=== PATIENT | male | born 1985 | race Caucasian/White ===

== ENCOUNTER 2019-12-26 00:53 | Emergency (ER) | payer SELFPAY ==
[2019-12-26] MEDS ORDERED: Diphtheria,Pertussis(Acell),Tetanus Vaccine 0.5 ML SDV IM ONE (00:57)
[2019-12-26] MEDS ORDERED: Lidocaine 1% 30 ML SDV INJECT ONE (00:57)
--- NOTE | 2019-12-26 01:01 | EDM.PDOC ---
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 [No Known Home Meds] 12/26/19 [History] ED ROS GENERAL - Review of Systems Review Of Systems: Comprehensive ROS is negative, except as noted in HPI. ED EXAM, SKIN/RASH Exam: See Below Exam Limited By: No Limitations General Appearance: Alert, WD/WN, Mild Distress, Other ([place]) Eye Exam: Bilateral Eye: PERRL (pupils ER @ 4mm) Ears: Hearing Grossly Normal Throat/Mouth: Normal Voice, No Airway Compromise Head: Other (right brow lac, no O/B) Neck: Non-Tender, Full Range of Motion Respiratory/Chest: No Respiratory Distress Cardiovascular: Regular Rate, Rhythm GI/Abdominal: Soft, Non-Tender Neurological: Alert, Oriented, Normal Cognition, Normal Gait, No Motor/Sensory Deficits Psychiatric: Normal Affect, Normal Mood Skin: Warm, Dry, Normal Color Location, Skin: Face ED SKIN PROCEDURES - Laceration/Wound Repair Right Elbow Appearance: Subcutaneous, Linear, Clean Anesthetic Type: Local Local Anesthesia - Lidocaine (Xylocaine): 1% Plain Local Anesthetic Volume: 5cc Skin Prep: Chlorhexidine (Hibiciens) Saline Irrigation (cc's): 20 Exploration/Debridement/Repair: Wound Explored, No Foreign Material Found Closed with: Sutures Lac/Wound length In cm: 3 Suture Size: 4-0 Suture Type: Nylon, Interrupted Sterile Dressing Applied: None Tetanus Status Addressed: Yes Complications: No Course - Vital Signs Last Recorded V/S: Last Vital Signs Temp 36.1 C 12/26/19 01:00 Pulse 91 12/26/19 01:00 Resp 19 12/26/19 01:00 BP 137/83 12/26/19 01:00 Pulse Ox 99 12/26/19 01:00 - Orders/Labs/Meds Orders: Active Orders 24 hr Category Date Time Status Vaccines to be Administered [RC] PER UNIT ROUTINE Care 12/26/19 00:57 Active Meds: Medications Discontinued Medications Generic Name Dose Route Start Last Admin Trade Name Troy PRN Reason Stop Dose Admin Diphtheria/Tetanus/Acell Pertussis 0.5 ml 12/26/19 00:57 12/26/19 01:08 Adacel IM 12/26/19 00:58 0.5 ml .ONCE ONE Administration Diphtheria/Tetanus/Acell Pertussis Confirm 12/26/19 01:06 Adacel Administered 12/26/19 01:07 Dose 0.5 ml .ROUTE .STK-MED ONE Lidocaine HCl 30 ml 12/26/19 00:57 12/26/19 01:09 Xylocaine-Mpf 1% INJECT 12/26/19 00:58 30 ml ONETIME ONE Administration Lidocaine HCl Confirm 12/26/19 01:06 Xylocaine-Mpf 1% Administered 12/26/19 01:07 Dose 30 ml .ROUTE .STK-MED ONE Departure - Departure Time of Disposition: 01:24 Disposition: Home, Self-Care 01 Condition: Good Clinical Impression: Laceration of brow without complication Qualifiers: Encounter type: initial encounter Qualified Code(s): S01.81XA - Laceration without foreign body of other part of head, initial encounter - Discharge Information Instructions: Sutured Wound Care, [id number] Additional Instructions: 1) keep wound clean and dry 2) recheck if looks infected 3) suture removal 7 to 10 days Sepsis Event Note - Focused Exam Vital Signs: Vital Signs Temp Pulse Resp BP Pulse Ox 12/26/19 01:00 36.1 C 91 19 137/83 99 Date Exam was Performed: 12/26/19 Time Exam was Performed: 01:24 - My Orders Last 24 Hours: My Active Orders 12/26/19 00:57 Vaccines to be Administered [RC] PER UNIT ROUTINE - Assessment/Plan Last 24 Hours: My Active Orders 12/26/19 00:57 Vaccines to be Administered [RC] PER UNIT ROUTINE
[2019-12-26] MEDS ORDERED: Lidocaine 1% 30 ML SDV ONE (01:06)
[2019-12-26] MEDS ORDERED: Diphtheria,Pertussis(Acell),Tetanus Vaccine 0.5 ML SDV ONE (01:06)
== END 2019-12-26 01:28 | disposition home or self-care (01) ==
LOC: DL.ED 00:53
DX: S01.111A Laceration without foreign body of right eyelid and periocular area, initial encounter (principal); Z23 Encounter for immunization; X58.XXXA Exposure to other specified factors, initial encounter
CPT/HCPCS: 12002; 90471; 90715; 99282; J2001

== ENCOUNTER 2022-02-19 20:42 | Emergency (ER) | payer SELFPAY ==
[2022-02-19 21:47] LABS: ANION GAP 14.1 mEq/L (7-13)
== END 2022-02-19 23:34 | disposition home or self-care (01) ==
LOC: DL.ED 20:42
DX: K42.9 Umbilical hernia without obstruction or gangrene (principal)
CPT/HCPCS: 36415; 80053; 85025; 99282; 99283

== ENCOUNTER 2024-05-13 15:17 | Observation (INO) | payer OTHER ==
[2024-05-13] MEDS ORDERED: Sodium Chloride 0.9% 10 ML Syringe FLUSH PRN (16:08)
[2024-05-13] MEDS: Iopamidol 612 MG/ML 100 ML Bottle IVPUSH ONE (16:11)
[2024-05-13] MEDS: Sodium Chloride 0.9% 1,000 ML IV ONE ×2 (17:07→17:46)
[2024-05-13 17:11] LABS: BASOPHILS PERCENT AUTO 0.2 % (0.0-1.0); EOSINOPHILS PERCENT AUTO 2.1 % (1.0-3.0); HEMATOCRIT 43.6 % (40.0-54.0); HEMOGLOBIN 14.9 g/dL (14.0-18.0); LYMPHOCYTES PERCENT AUTO 25.2 % (20.5-50.1); MEAN CORPUSCULAR HEMOGLOBIN 30.2 pg (27.0-34.0); MEAN CORPUSCULAR HGB CONC 34.2 g/dL (33.0-35.0); MEAN CORPUSCULAR VOLUME 88.3 fL (80-100); MONOCYTES PERCENT AUTO 8.5 % (2-8); PLATELET COUNT,PLT 248 10^3/uL (150-450); RED BLOOD CELL COUNT 4.94 10^6/uL (4.6-6.2); WHITE BLOOD CELL COUNT,WBC 10.3 10^3/uL (5.0-10.0)
[2024-05-13 17:20] LABS: APPEARANCE,URINE CLEAR (CLEAR); BILIRUBIN,URINE NEGATIVE (NEGATIVE); COLOR,URINE YELLOW (YELLOW); GLUCOSE,URINE NEGATIVE (NEGATIVE); KETONES,URINE NEGATIVE (NEGATIVE); LEUKOCYTE ESTERASE,URINE NEGATIVE (NEGATIVE); NITRITE,URINE NEGATIVE (NEGATIVE); OCCULT BLOOD,URINE SMALL (NEGATIVE); PH,URINE 6.5 (5.0-9.0); PROTEIN,URINE NEGATIVE (NEGATIVE); UROBILINOGEN,URINE 0.2 mg/dL (0.2-1.0)
[2024-05-13 17:29] LABS: AMORPHOUS SEDIMENT,URINE RARE /HPF (NOT SEEN); BACTERIA,URINE FEW /HPF (0-FEW/HPF); EPITHELIAL CELLS,URINE RARE /HPF (NOT SEEN); MUCUS,URINE FEW /LPF (NOT SEEN); WBC,URINE 0-5 /HPF (0-5/HPF)
[2024-05-13 17:33] LABS: PROTHROMBIN TIME 10.3 SEC (9.0-12.0); PTT,PARTIAL THROMBOPLSTIN TIME 25.8 SEC (22.0-34.0)
[2024-05-13 17:36] LABS: ALBUMIN 3.9 g/dL (3.4-5.0); ANION GAP 13.1 mEq/L (7-13); BILIRUBIN TOTAL 0.3 mg/dL (0.2-1.0); BUN/CREATININE RATIO 11.8 (No establ ref range); CALCIUM 9.1 mg/dL (8.5-10.1); CREATININE 1.19 mg/dL (0.70-1.30); EST CRCL DRUG DOSING (CG) 108.81 mL/min; MAGNESIUM 1.8 mg/dL (1.8-2.4); POTASSIUM,K 4.1 mmol/L (3.5-5.1); PROTEIN TOTAL,TP 7.7 g/dL (6.4-8.2)
[2024-05-13 20:30] LABS: AMPHETAMINES,URINE NEGATIVE (NEGATIVE); BARBITURATES,URINE NEGATIVE (NEGATIVE); BENZODIAZEPINE,URINE NEGATIVE (NEGATIVE); MDMA (ECSTASY), URINE NEGATIVE (NEGATIVE); METHADONE,URINE NEGATIVE (NEGATIVE); METHAMPHETAMINES,URINE NEGATIVE (NEGATIVE); OPIATES,URINE NEGATIVE (NEGATIVE); OXYCODONE,URINE NEGATIVE (NEGATIVE); PHENCYCLIDINE,URINE NEGATIVE (NEGATIVE); TCA,URINE NEGATIVE (NEGATIVE)
[2024-05-13] MEDS ORDERED: Sennosides/Docusate Sodium 50-8.6 MG Tab PO PRN (21:24)
[2024-05-13] MEDS ORDERED: HYDROmorphone 0.5 MG/0.5 ML Syringe IVPUSH PRN (21:24)
[2024-05-13] MEDS ORDERED: Metoclopramide 10 MG/2 ML SDV IV PRN (21:24)
[2024-05-13] MEDS ORDERED: Magnesium Hydroxide 400 MG/5 ML Susp 30 ML Cup PO PRN (21:24)
[2024-05-13] MEDS ORDERED: Acetaminophen/oxyCODONE 325-5 MG Tab PO PRN (21:24)
[2024-05-13] MEDS ORDERED: Albuterol/Ipratropium 3.0-0.5 MG/3 ML Neb Soln NEB PRN (21:24)
[2024-05-13] MEDS ORDERED: Naloxone 2 MG/2 ML Syringe IVPUSH PRN (21:24)
[2024-05-13] MEDS ORDERED: Temazepam 15 MG Cap PO PRN (21:24)
[2024-05-13] MEDS ORDERED: Acetaminophen 325 MG Tab PO PRN (21:24)
[2024-05-13] MEDS ORDERED: Polyethylene Glycol 3350 Powder 17 GM Packet PO PRN (21:24)
[2024-05-13] MEDS ORDERED: Ondansetron 4 MG/2 ML SDV IVPUSH PRN (21:24)
[2024-05-13] MEDS: Sodium Chloride 0.9% 1,000 ML IV SCH (22:00)
[2024-05-14 06:38] LABS: BASOPHILS PERCENT AUTO 0.4 % (0.0-1.0); EOSINOPHILS PERCENT AUTO 3.7 % (1.0-3.0); HEMATOCRIT 41.9 % (40.0-54.0); HEMOGLOBIN 14.3 g/dL (14.0-18.0); LYMPHOCYTES PERCENT AUTO 28.2 % (20.5-50.1); MEAN CORPUSCULAR HGB CONC 34.1 g/dL (33.0-35.0); MONOCYTES PERCENT AUTO 9.7 % (2-8); PLATELET COUNT,PLT 215 10^3/uL (150-450); RED BLOOD CELL COUNT 4.76 10^6/uL (4.6-6.2); WHITE BLOOD CELL COUNT,WBC 7.3 10^3/uL (5.0-10.0)
[2024-05-14 06:59] LABS: ALBUMIN 3.3 g/dL (3.4-5.0); ANION GAP 10.3 mEq/L (7-13); BILIRUBIN TOTAL 0.5 mg/dL (0.2-1.0); BUN/CREATININE RATIO 11.8 (No establ ref range); CALCIUM 8.8 mg/dL (8.5-10.1); CREATININE 1.1 mg/dL (0.70-1.30); EST CRCL DRUG DOSING (CG) 117.71 mL/min; MAGNESIUM 1.8 mg/dL (1.8-2.4); POTASSIUM,K 4.3 mmol/L (3.5-5.1); PROTEIN TOTAL,TP 6.7 g/dL (6.4-8.2)
[2024-05-14 07:01] LABS: A/G RATIO 0.97
[2024-05-14] MEDS ORDERED: Enoxaparin 40 MG/0.4 ML Syringe SUBCUT SCH (09:00)
== END 2024-05-14 09:55 | disposition home or self-care (01) ==
LOC: DL.ED 15:17 → DL.MS 19:16
PROVIDERS: ADMIT Internal Medicine; ATTEND Internal Medicine
DX: M62.82 Rhabdomyolysis (principal); E78.5 Hyperlipidemia, unspecified; E66.812 Obesity, class 2; Z68.37 Body mass index [BMI] 37.0-37.9, adult
CPT/HCPCS: 36415; 70450; 71045; 71260; 72125; 73090; 73100; 73552; 74177; 80053; 80305; 80307; 81001; 82550; 83735; 85025; 85610; 85730; 96360; 96361; 99285; G0378; J7030; Q9967; 99222; 99238